=== PATIENT | female | born 1945 | race Caucasian/White ===

== ENCOUNTER → 2021-09-23 | Outpatient (CLI) | payer OTHER, MEDICARE ==
[~2021-09-23] MED LIST: ATIVAN1 MG PO; CRESTOR20 MG PO; ECOTRIN81 MG PO; IMDUR ER TAB 3030 MG PO; LASIX20 MG PO; NEURONTIN300 MG PO; NITROSTAT0.4 MG SL; NORCO 10-325 T1 EACH PO; OMEPRAZOLE20 MG PO; PERCOCET 7.5-31 EACH PO; PLAVIX 75 MG TA75 MG PO; PROZAC20 MG PO; ZESTRIL2.5 MG PO; ZYRTEC10 M3 PO
== END ==
LOC: HEART CORB 09:32
DX: I25.10 Atherosclerotic heart disease of native coronary artery without angina pectoris (principal); R07.89 Other chest pain; I25.2 Old myocardial infarction; R06.02 Shortness of breath; I08.1 Rheumatic disorders of both mitral and tricuspid valves
CPT/HCPCS: 78452; 93306; A9502; J2785

== ENCOUNTER → 2021-11-06 | Outpatient (CLI) | payer OTHER, MEDICARE ==
[~2021-11-06] VITALS: Ht 160 cm; Wt 65.8 kg
== END ==
LOC: EROP 11:03
DX: U07.1 COVID-19 (principal); Z23 Encounter for immunization; I10 Essential (primary) hypertension; M51.36 Other intervertebral disc degeneration, lumbar region; J44.9 Chronic obstructive pulmonary disease, unspecified; E78.5 Hyperlipidemia, unspecified; Z87.891 Personal history of nicotine dependence
CPT/HCPCS: M0247; Q0247

== ENCOUNTER → 2021-12-13 | Outpatient (CLI) | payer OTHER, MEDICARE | LOC: HEART 5 14:10 | DX: J44.9 Chronic obstructive pulmonary disease, unspecified (principal) | CPT/HCPCS: 94010 ==

== ENCOUNTER → 2022-01-20 | Outpatient (CLI) | payer OTHER, MEDICARE ==
[2022-01-20 15:49] LABS: HEMOGLOBIN 13.3 gm/dl (12.3-15.3); RED BLOOD COUNT 4.62 M/UL (4.00-5.10); WHITE BLOOD COUNT 6.9 K/UL (4.5-11.0)
[2022-01-20 16:09] LABS: BUN/CREATININE RATIO 20 (0-10)
[2022-01-21 12:16] LABS: RHEUMATOID ARTHRITIS FACTOR <10.0 IU/mL (<14.0)
[2022-01-24 16:11] LABS: ANA DIRECT Negative (Negative); ANTIMYELOPEROXIDASE (MPO) ABS <9.0 U/mL (0.0-9.0); ANTIPROTEINASE 3 (PR-3) ABS <3.5 U/mL (0.0-3.5); ATYPICAL PANCA <1:20 titer (Neg:<1:20); CYTOPLASMIC (C-ANCA) <1:20 titer (Neg:<1:20); PERINUCLEAR (P-ANCA) <1:20 titer (Neg:<1:20)
== END ==
LOC: LAB 15:16
PROVIDERS: Internal Medicine Pulmonary Disease
DX: J84.112 Idiopathic pulmonary fibrosis (principal)
CPT/HCPCS: 36415; 80053; 83516; 85025; 86038; 86140; 86200; 86256; 86431

== ENCOUNTER → 2022-01-20 | Outpatient (CLI) | payer OTHER, MEDICARE | LOC: KOH-I 14:13 | DX: J84.112 Idiopathic pulmonary fibrosis (principal) | CPT/HCPCS: 71250 ==

== ENCOUNTER → 2022-04-08 | Outpatient (CLI) | payer OTHER, MEDICARE | LOC: LAB 16:17 | PROVIDERS: Internal Medicine Pulmonary Disease | DX: J84.112 Idiopathic pulmonary fibrosis (principal); Z00.00 Encounter for general adult medical examination without abnormal findings | CPT/HCPCS: 36415; 80053 ==